=== PATIENT | male | born 1965 | race Caucasian/White ===

== ENCOUNTER → 2017-09-10 | Outpatient (CLI) | payer OTHER ==
[~2017-09-10] MED LIST: FOLI800T PO; GARL200T2 PO; LORA-650 PO; MAGN500T2 PO; RED0.25P PO; ROPI1TAB PO; ZINC220T PO
[2017-09-10 15:35] LABS: AUTOMATED NEUTROPHIL # 4.2 TH/MM3 (1.8-7.7); BASOPHIL % 0.4 % (0.0-2.0); EOSINOPHIL # 0.1 TH/MM3 (0-0.4); EOSINOPHIL % 1.7 % (0.0-4.0); HEMOGLOBIN 16.1 GM/DL (13.0-17.0); LYMPH % 23.5 % (9.0-44.0); LYMPHOCYTE # 1.5 TH/MM3 (1.0-4.8); MEAN CELL VOLUME 91.4 FL (80.0-100.0); MEAN CORPUSCULAR HEMOGLOBIN 32.1 PG (27.0-34.0); MEAN CORPUSCULAR HGB CONC 35.1 % (32.0-36.0); MEAN PLATELET VOLUME 7.8 FL (7.0-11.0); MONO % 9.8 % (0.0-8.0); MONOCYTE # 0.6 TH/MM3 (0-0.9); NEUT % 64.6 % (16.0-70.0); PLATELET COUNT 258 TH/MM3 (150-450); RED BLOOD COUNT 5.04 MIL/MM3 (4.50-5.90); RED CELL DISTRIBUTION WIDTH 12.6 % (11.6-17.2); WHITE BLOOD COUNT 6.6 TH/MM3 (4.0-11.0)
--- NOTE | 2017-09-10 17:04 | MH ---
cc: Ronnie Huerta MD DATE OF ADMISSION: 09/10/2017 HISTORY OF PRESENT ILLNESS: A 52-year-old gentleman with nasal obstruction and chronic sinusitis, for nasal sinus surgery. PAST MEDICAL HISTORY: Unremarkable. PAST SURGICAL HISTORY: Unremarkable. REVIEW OF SYSTEMS Unremarkable. FAMILY HISTORY: Unremarkable. SOCIAL HISTORY: Unremarkable. PHYSICAL EXAMINATION: GENERAL: Well-appearing patient, no acute distress noted. HEENT: Reveals septal deviation, turbinate hypertrophy, copious clear secretions. LUNGS: Clear. HEART: Regular rate and rhythm. ABDOMEN: Soft and nontender. EXTREMITIES: Without cyanosis, clubbing or edema. NEUROLOGIC: Alert, oriented, nonfocal neurologic exam. IMPRESSION: A patient with chronic sinusitis and nasal obstruction, for nasal sinus surgery. Instructed surgery and possible complications including anesthetic complication, cardiac difficulty, pulmonary difficulty, stroke, or even , surgical complication, bleeding, infection. In addition, injury to orbit including blindness and diplopia, injury to brain, including CSF leak, meningitis, brain abscess or even . The patient appeared to agree, accept and understand the above mentioned risks and benefits. We will therefore proceed with surgery. MD RASHMI Robles/SB , 04:49 PM , 05:02 PM
--- NOTE | 2017-09-11 14:04 | EKG ---
Date Performed: 09/10/2017 Time Performed: 14:48:54 PTAGE: 52 years EKG: Sinus rhythm WITH FIRST DEGREE AV BLOCK ABNORMAL QRS-T ANGLE ABNORMAL ECG NO PREVIOUS TRACING DOCTOR: Debi Melara Interpretating Date/Time 09/11/2017 13:59:23
== END ==
LOC: CPRE 14:37
PROVIDERS: ATTEND Specialist
DX: Z01.810 Encounter for preprocedural cardiovascular examination (principal); Z01.812 Encounter for preprocedural laboratory examination; R94.31 Abnormal electrocardiogram [ECG] [EKG]
CPT/HCPCS: 36415; 85025; 93005

== ENCOUNTER → 2017-09-11 | Day surgery (SDC) | payer OTHER ==
[~2017-09-11] VITALS: Ht 185.4 cm; Wt 100.5 kg
[~2017-09-11] MED LIST changes: +*morphine SULFATE 4 MG/ML PERIprocedure ONLY ONE; +ACETAMINOPHEN 1000 MG/100 ML 100 ML IV ONE; +ACETAMINOPHEN/HYDROcodone 325 MG/7.5 MG TAB PO PRN; +CHLORHEXIDINE GLUCONATE 2 % 1 PACK (2 CLOTHS) TOPICAL PRN; +DEXAMETHASONE SOD PHOS 4 MG/ML VIAL IV ONE; +DO NOT ADM ANY ANTICOAGULANT DRUGS PRN; +EPINEPHrine HCL (1:1000) 30 MG/30 ML VIAL ONE; +GLYCOPYRROLATE 1 MG/5 ML SYRINGE IV PUSH ONE; +LACTATED RINGER'S 1000 ML IV PRN; +LIDOCAINE 1%/EPINEPHrine 1:100,000 SOLN 30 ML VIAL ONE; +LIDOCAINE HCL 1% PF 5 ML SYRINGE OTHER ONE; +METOPROLOL TARTRATE 25 MG TAB PO PRN; +MORPHINE SULFATE 4 MG/ML INJ IV PUSH PRN; +NEOSTIGMINE 5 MG/5 ML SYRINGE IV PUSH ONE; +ONDANSETRON HCL 4 MG/2 ML VIAL IV ONE; +ONDANSETRON HCL 4 MG/2 ML VIAL IV PUSH PRN; +POVIDONE IODINE 5% (ANTISEPSIS KIT) 4 APPLICATIONS EACH NARE PRN; +PROPOFOL 200 MG/20 ML AMP IV ONE; +ROCURONIUM INJ 50 MG/5 ML SYRINGE IV PUSH ONE; +SODIUM CHLORID 0.9% 500 ML IV PRN
[2017-09-11 11:00] VITALS: BP 110/69; PULSE 60; RESP 18; TEMP 98; O2SAT 98
--- NOTE | 2017-09-11 11:28 | MP ---
cc: Ronnie Huerta MD DATE OF OPERATION: 09/11/2017 DATE OF OPERATION: 09/11/2017. PREOPERATIVE DIAGNOSIS: Nasal obstruction and chronic sinusitis. PROCEDURE: Open septal reconstruction with bilateral endoscopic sinusotomies including left frontal endoscopic sinusotomy, right frontal endoscopic sinusotomy, left endoscopic anterior-posterior ethmoidectomy, right endoscopic anterior-posterior ethmoidectomy, left endoscopic maxillary with removal of tissue, right endoscopic maxillary antrostomy with removal of tissue, left and right inferior turbinectomy, submucous resection. ANESTHESIA: General anesthesia. ESTIMATED BLOOD LOSS: 50 mL. COMPLICATIONS: No complications. OPERATING SURGEON: Dr. Huerta OPERATION: Prepped and draped in usual fashion. 1% Xylocaine with 1:100,000 epinephrine injected into the nasal septum, inferior turbinates, middle meatus bilaterally; 1:1000 adrenaline soaked pledgets were placed and then removed. Once this was achieved, a mucoperichondrial incision was made on the left side of the nose, a mucoperichondrial flap elevated. A significant amount of bone and cartilage were removed to improve nasal airway and reduce nasal fracture, mucoperichondrial flap reapproximated. Under endoscopic visualization, natural antrostomy identified on the left side and mucopurulent material suctioned from it, polypoid tissue micro-debrided from the antrostomy and anterior-posterior ethmoidectomy and frontal sinus recess dissection performed on that side as well. Once this was achieved, Telfa splint was placed in the middle meatus on this side. Attention was turned to the opposite side, which is the right side, whereby significant polypoid tissue was removed and the anterior-posterior ethmoidectomy performed with microdebrider, natural antrostomy with removal of tissue as well as significant frontal sinus recess dissection. Once this was achieved, Telfa splint placed. After completion of bilateral ethmoid, frontal sinus recess dissection and natural antrostomy with removal of tissue and the Telfa sponge placed in both middle meatus. Using the Coblator probe with power level 4, significant removal/reduction of inferior turbinates bilaterally performed submucosally with mucosal sparing. No active bleeding noted. Mild NasoPore dressing placed. The patient tolerated the procedure well. MD RASHMI Robles/CHAU , 10:53 AM , 11:26 AM
== END | disposition home or self-care (01) ==
LOC: HSDC 06:27
PROVIDERS: ATTEND Specialist
DX: J34.2 Deviated nasal septum (principal); J34.3 Hypertrophy of nasal turbinates; J32.9 Chronic sinusitis, unspecified
CPT/HCPCS: 00160; 30140; 30520; 31253; 31267; J0131; J0171; J1100; J2270; J2405; J2710; J3010